=== PATIENT | male | born 1965 | race Hispanic/Latino ===

== ENCOUNTER → 2020-06-27 | Outpatient (CLI) | payer OTHER | END | disposition home or self-care (01) | LOC: RAH 12:54 | PROVIDERS: ATTEND Orthopaedic Surgery | DX: S83.241A Other tear of medial meniscus, current injury, right knee, initial encounter (principal); S83.242A Other tear of medial meniscus, current injury, left knee, initial encounter; M71.21 Synovial cyst of popliteal space [Baker], right knee; M23.91 Unspecified internal derangement of right knee; X58.XXXA Exposure to other specified factors, initial encounter; Y93.89 Activity, other specified; Y92.89 Other specified places as the place of occurrence of the external cause; Y99.8 Other external cause status | CPT/HCPCS: 73721 ==

== ENCOUNTER 2021-04-03 09:03 | Day surgery (SDC) | payer OTHER ==
[2021-04-01 11:03] LABS: BASOPHILS % (AUTO) 0.7 % (0.0-5.0); EOSINOPHILS % (AUTO) 1.3 % (0.0-8.0); HEMATOCRIT 49.2 % (42-54); LYMPHOCYTES % (AUTO) 28.7 % (21.0-51.0); MEAN CORPUSCULAR HEMOGLOBIN 27.8 pg (27.0-33.0); MEAN CORPUSCULAR HGB CONC 32.9 g/dL (32.0-36.0); MEAN CORPUSCULAR VOLUME 84.4 fL (79-99); MONOCYTES % (AUTO) 6.8 % (3.0-13.0); PLATELET COUNT (AUTO) 213 K/uL (130-400); RED BLOOD CELL COUNT(AUTO) 5.83 MIL/uL (4.50-6.20); WHITE BLOOD COUNT (AUTO) 7.6 K/uL (4.8-10.8)
[2021-04-01 11:15] LABS: POTASSIUM 5.2 mmol/L (3.5-5.1)
[2021-04-02 09:26] VITALS: BP 120/83
[2021-04-03] VITALS (17 sets, daily range): BP systolic 93–152; BP diastolic 54–74
[~2021-04-03] VITALS: Ht 167.6 cm; Wt 106.5 kg
[~2021-04-03 09:03] MED LIST: ATOR10 PO; BUSP15 PO; CANA300T PO; GABA600T10 PO; INSU100V12 SQ; KOMBIGLYZE XR PO; LOSA100T58 PO; OMEP40CA21 PO
[2021-04-03] MEDS ORDERED: CEFAZOLIN SODIUM 1 GM VIAL ONE (09:49)
[2021-04-03] MEDS ORDERED: 0.9%NACL 1000ML 1,000 ML IV ONE (09:49)
[2021-04-03] MEDS ORDERED: MIDAZOLAM HCL 1 MG/ML 2ML VIAL ONE (10:49)
[2021-04-03] MEDS ORDERED: LIDOCAINE HCL-MPF 1% 5ML AMP IJ ONE (10:50)
[2021-04-03] MEDS ORDERED: PROPOFOL 10 MG/ML 20ML VIAL IV ONE (10:50)
[2021-04-03] MEDS ORDERED: CEFAZOLIN SODIUM 2 GM VIAL IV ONE (10:50)
[2021-04-03] MEDS ORDERED: FENTANYL CITRATE PF 50 MCG/1 ML 2ML VIAL ONE ×2 (10:50→11:27)
[2021-04-03] MEDS ORDERED: PHENYLEPHRINE HCL 10 MG/ML 1ML VIAL IV ONE (11:02)
[2021-04-03] MEDS ORDERED: EPHEDRINE SULFATE 50 MG/ML AMPULE ONE (11:19)
[2021-04-03] MEDS ORDERED: ROCURONIUM 10MG/1ML SYR 10 MG/ML ML ONE (11:24)
[2021-04-03] MEDS ORDERED: GLYCOPYRROLATE 1 MG/5 ML SYRINGE ONE (11:35)
[2021-04-03] MEDS ORDERED: ONDANSETRON 4MG INJ ONE (11:36)
[2021-04-03] MEDS ORDERED: ACET1TAB25 PO (11:50)
[2021-04-03] MEDS ORDERED: CEPH500B PO (11:50)
[2021-04-03] MEDS ORDERED: MEPERIDINE-PF 25 MG/ML SYG ONE (12:22)
== END 2021-04-03 13:30 | disposition home or self-care (01) ==
LOC: DAH 09:03
PROVIDERS: ATTEND Orthopaedic Surgery
DX: S83.232A Complex tear of medial meniscus, current injury, left knee, initial encounter (principal); M17.12 Unilateral primary osteoarthritis, left knee; G89.29 Other chronic pain; M94.262 Chondromalacia, left knee; Z20.822 Contact with and (suspected) exposure to COVID-19; I10 Essential (primary) hypertension; E78.5 Hyperlipidemia, unspecified; K21.9 Gastro-esophageal reflux disease without esophagitis; E11.9 Type 2 diabetes mellitus without complications; E66.9 Obesity, unspecified; X58.XXXA Exposure to other specified factors, initial encounter; Y93.89 Activity, other specified; Y92.89 Other specified places as the place of occurrence of the external cause; Y99.8 Other external cause status
CPT/HCPCS: 29870; 36415 ×2; 80048; 82948 ×2; 84132; 85025; 87635; A4215; A4221; A4222; A4223; A4649; A4663; A4930 ×3; A5120; A6223; C9803; J0690 ×2; J2175; J2250; J2370; J2405; J2704; J3010 ×2; J3490 ×3; J7030

== ENCOUNTER 2021-10-23 06:30 | Day surgery (SDC) | payer OTHER ==
[2021-10-21 12:20] VITALS: BP 167/74
[2021-10-21 13:16] LABS: BASOPHILS % (AUTO) 0.5 % (0.0-5.0); HEMATOCRIT 51.8 % (42-54); LYMPHOCYTES % (AUTO) 36.5 % (21.0-51.0); MEAN CORPUSCULAR HEMOGLOBIN 27.9 pg (27.0-33.0); MEAN CORPUSCULAR HGB CONC 33.4 g/dL (32.0-36.0); MEAN CORPUSCULAR VOLUME 83.5 fL (79-99); MONOCYTES % (AUTO) 6.9 % (3.0-13.0); NEUTROPHILS % (AUTO) 53.9 % (40.0-77.0); PLATELET COUNT (AUTO) 223 K/uL (130-400); RED CELL DISTRIBUTION WIDTH 13.1 % (11.0-15.5); WHITE BLOOD COUNT (AUTO) 6.4 K/uL (4.8-10.8)
[2021-10-21 13:27] LABS: POTASSIUM 4.7 mmol/L (3.5-5.1)
[~2021-10-23] VITALS: Ht 167.6 cm; Wt 105.4 kg
[~2021-10-23 06:30] MED LIST changes: -KOMBIGLYZE XR PO; -LOSA100T58 PO; +SAXA1TBM2 PO
[2021-10-23 06:45] VITALS: BP 163/76
[2021-10-23] MEDS ORDERED: 0.9%NACL 1000ML 1,000 ML IV ONE (07:01)
[2021-10-23] MEDS ORDERED: CEFAZOLIN SODIUM 1 GM VIAL IVP ONE (08:00)
== END 2021-10-23 19:00 | disposition home or self-care (01) ==
LOC: DAH 06:30
PROVIDERS: ATTEND Orthopaedic Surgery
DX: M17.11 Unilateral primary osteoarthritis, right knee (principal); S83.251A Bucket-handle tear of lateral meniscus, current injury, right knee, initial encounter; Z79.899 Other long term (current) drug therapy; Z53.8 Procedure and treatment not carried out for other reasons
CPT/HCPCS: 87426; 80048; 85025; 36415 ×2; 82948; 82947; A4663; J7030; A5120; A4215; A4223; A4222; A4221; J0690

== ENCOUNTER 2021-10-30 08:40 | Day surgery (SDC) | payer OTHER ==
[2021-10-29 10:41] VITALS: BP 167/64
[~2021-10-30] VITALS: Ht 167.6 cm; Wt 105.4 kg
[2021-10-30] VITALS (18 sets, daily range): BP systolic 116–167; BP diastolic 51–72
[~2021-10-30 08:40] MED LIST changes: +CEFAZOLIN SODIUM 1 GM VIAL IVP SCH
[2021-10-30] MEDS ORDERED: 0.9%NACL 1000ML 1,000 ML IV ONE (09:27)
[2021-10-30] MEDS ORDERED: NEOSTIGMINE 5MG/5ML SYR IV ONE (10:48)
[2021-10-30] MEDS ORDERED: PROPOFOL 10 MG/ML 20ML VIAL IV ONE (10:48)
[2021-10-30] MEDS ORDERED: ONDANSETRON 4MG INJ ONE ×2 (10:48→13:35)
[2021-10-30] MEDS ORDERED: DEXAMETHASONE SOD PHOSPHATE 10MG/ML 1ML VIAL ONE (10:48)
[2021-10-30] MEDS ORDERED: ROCURONIUM 10MG/1ML SYR 10 MG/ML ML ONE (10:48)
[2021-10-30] MEDS ORDERED: MIDAZOLAM HCL 1 MG/ML 2ML VIAL ONE (10:48)
[2021-10-30] MEDS ORDERED: GLYCOPYRROLATE 1 MG/5 ML SYRINGE ONE (10:48)
[2021-10-30] MEDS ORDERED: FENTANYL CITRATE PF 50 MCG/1 ML 2ML VIAL ONE ×2 (10:49→12:54)
[2021-10-30] MEDS ORDERED: LIDOCAINE HCL MPF 1% 5ML VIAL ONE (11:55)
[2021-10-30] MEDS ORDERED: EPHEDRINE SULFATE 50 MG/ML AMPULE ONE (12:30)
[2021-10-30] MEDS ORDERED: CEPH500B PO (13:16)
[2021-10-30] MEDS ORDERED: ACET-2079 PO (13:16)
[2021-10-30] MEDS ORDERED: KETOROLAC 30MG VIAL (30MG/ML) ONE (13:35)
[2021-10-30] MEDS ORDERED: MEPERIDINE-PF 25 MG/ML SYG ONE (13:37)
== END 2021-10-30 15:15 | disposition home or self-care (01) ==
LOC: DAH 08:40
PROVIDERS: ATTEND Orthopaedic Surgery
DX: M17.11 Unilateral primary osteoarthritis, right knee (principal); M25.561 Pain in right knee; G89.29 Other chronic pain; E11.9 Type 2 diabetes mellitus without complications; E66.01 Morbid (severe) obesity due to excess calories; Z98.890 Other specified postprocedural states; Z79.899 Other long term (current) drug therapy
CPT/HCPCS: 87426; 29870; 82948 ×2; A4663; J7030 ×2; J3010 ×2; J0690; J3490 ×3; J1100; J2710; J2250; J2704; J2405 ×2; J1885; J2175; A6223; A4649; A4215; A4223; A4222; A4221; A6450

== ENCOUNTER → 2022-08-31 | Outpatient (CLI) | payer OTHER ==
[~2022-08-31] MED LIST changes: +ACET-2079 PO; -CEFAZOLIN SODIUM 1 GM VIAL IVP SCH; +CEPH500B PO
== END | disposition home or self-care (01) ==
LOC: RAH 15:28
PROVIDERS: ATTEND Internal Medicine
DX: S83.229 Peripheral tear of medial meniscus, current injury, unspecified knee (principal); M51.36 Other intervertebral disc degeneration, lumbar region; M43.17 Spondylolisthesis, lumbosacral region; M47.817 Spondylosis without myelopathy or radiculopathy, lumbosacral region; X58.XXXD Exposure to other specified factors, subsequent encounter
CPT/HCPCS: 72100; 73560

== ENCOUNTER 2023-08-30 18:44 | Emergency (ER) | payer OTHER, MEDICAID ==
[~2023-08-30] VITALS: Ht 167.6 cm; Wt 108.9 kg
[2023-08-30 18:51] VITALS: BP 199/84; PULSE 82; RESP 16
[2023-08-30] MEDS: CYCLOBENZAPRINE HCL 10 MG TABLET PO ONE (19:50)
[2023-08-30] MEDS: SOLU-MEDROL 125MG VIAL IVP ONE (20:00)
[2023-08-30] MEDS: ONDANSETRON ODT 4MG TAB SL ONE (20:01)
[2023-08-30] MEDS: MORPHINE 4 MG SYG IVP ONE (20:01)
[2023-08-30] MEDS: KETOROLAC 30MG VIAL (30MG/ML) IVP ONE (20:01)
[2023-08-30] MEDS ORDERED: CYCL10TA16 PO (20:37)
[2023-08-30] MEDS ORDERED: IBUP-2077 PO (20:37)
== END 2023-08-30 20:50 | disposition home or self-care (01) ==
LOC: EDH 18:44
DX: M51.26 Other intervertebral disc displacement, lumbar region (principal); I10 Essential (primary) hypertension; E11.9 Type 2 diabetes mellitus without complications; Z79.899 Other long term (current) drug therapy; Z98.890 Other specified postprocedural states
CPT/HCPCS: 99284; 96374; 96375; J2919; J2270; J1885

== ENCOUNTER 2023-11-25 15:22 | Emergency (ER) | payer OTHER, MEDICARE ==
[~2023-11-25] VITALS: Ht 167.6 cm; Wt 104.3 kg
[~2023-11-25 15:22] MED LIST changes: +CYCL10TA16 PO; +GABA-1405 PO; -GABA600T10 PO; +IBUP-2077 PO
[2023-11-25 15:23] VITALS: BP 155/55; PULSE 110; RESP 18; TEMP 98.5
[2023-11-25 15:45] LABS: BASOPHILS # (AUTO) 0.03 K/uL (0.00-0.20); BASOPHILS % (AUTO) 0.2 % (0.0-5.0); EOSINOPHILS # (AUTO) 0.01 K/uL (0.00-0.70); EOSINOPHILS % (AUTO) 0.1 % (0.0-8.0); HEMATOCRIT 38.6 % (42-54); IMMATURE GRANULOCYTE ABSOLUTE 0.05 K/uL (0-1); LYMPHOCYTES # (AUTO) 0.9 K/uL (1.0-4.8); LYMPHOCYTES % (AUTO) 5.9 % (21.0-51.0); MEAN CORPUSCULAR HGB CONC 31.9 g/dL (32.0-36.0); MONOCYTES # (AUTO) 1.3 K/uL (0.1-1.0); MONOCYTES % (AUTO) 9.3 % (3.0-13.0); NEUTROPHILS # (AUTO) 12.1 K/uL (1.8-7.7); NEUTROPHILS % (AUTO) 84.2 % (40.0-77.0); PLATELET COUNT (AUTO) 335 K/uL (130-400); RED BLOOD CELL COUNT(AUTO) 4.24 MIL/uL (4.50-6.20); RED CELL DISTRIBUTION WIDTH 13.2 % (11.0-15.5); WHITE BLOOD COUNT (AUTO) 14.3 K/uL (4.8-10.8)
[2023-11-25 15:55] LABS: POTASSIUM 4.6 mmol/L (3.5-5.1)
[2023-11-25 16:09] LABS: PLATELET MORPHOLOGY PLT CLUMPS PRESENT
[2023-11-25 16:17] LABS: COVID19 (SARS ANTIGEN RAPID) PRESUMPTIVE NEGATIVE (NEGATIVE); INFLUENZA TYPE A Negative For Type A (NEGATIVE); INFLUENZA TYPE B Negative For Type B (NEGATIVE)
[2023-11-25 16:29] LABS: RAPID GROUP A STREP positive (NEGATIVE)
[2023-11-25] MEDS: 0.9%NACL 1000ML 1,000 ML IV STA (17:15)
[2023-11-25] MEDS: morPHINE 2 MG SYG IVP STA ×2 (17:16→18:48)
[2023-11-25] MEDS: ONDANSETRON 4MG INJ IVP STA (17:16)
[2023-11-25] MEDS: mecliZINE HCL 25 MG TABLET PO STA (17:16)
[2023-11-25 19:03] LABS: ADD UA MICROSCOPIC YES; APPEARANCE,URINE CLEAR (CLEAR); BILIRUBIN,URINE NEGATIVE (NEGATIVE); COLOR,URINE YELLOW (YELLOW); GLUCOSE, URINE (UA) >=1000 mg/dL (NEGATIVE); KETONES,URINE NEGATIVE (NEGATIVE); LEUKOCYTE ESTERASE ,URINE NEGATIVE Leu/uL (NEGATIVE); NITRATE,URINE NEGATIVE (NEGATIVE); OCCULT BLOOD,URINE NEGATIVE (NEGATIVE); PROTEIN,URINE NEGATIVE (NEGATIVE); UROBILINOGEN,URINE 0.2 mg/dL (0.2-1.0)
[2023-11-25 19:04] LABS: RBC,URINE 0-1 /HPF (0-1); SQUAMOUS EPITHELIAL CELL,UR RARE /HPF (0-2); WBC,URINE 0-1 /HPF (0-1)
[2023-11-25] MEDS: cefTRIAXone 1G VIAL IVPB ONE (19:05)
[2023-11-25] MEDS ORDERED: AMOX1TAB16 PO (19:08)
== END 2023-11-25 20:13 | disposition home or self-care (01) ==
LOC: EDH 15:22
DX: J02.0 Streptococcal pharyngitis (principal); Z20.822 Contact with and (suspected) exposure to COVID-19; E11.9 Type 2 diabetes mellitus without complications; I10 Essential (primary) hypertension; G89.29 Other chronic pain; M54.9 Dorsalgia, unspecified; Z79.2 Long term (current) use of antibiotics; Z79.899 Other long term (current) drug therapy; Z79.84 Long term (current) use of oral hypoglycemic drugs; Z79.4 Long term (current) use of insulin
CPT/HCPCS: 99285; 96374; 70450; 96375; 96361; 87426; 80048; 85025; 87880; 87804 ×2; 81001; 36415; 96376; 93005; J2270 ×2; J7030; J0696; J2405